=== PATIENT | male | born 1975 | race African-American/Black ===

== ENCOUNTER 2018-05-04 00:22 | Emergency (ER) | payer SELFPAY ==
[2018-05-04 01:01] LABS: Urine Blood NEGATIVE (NEG); Urine Glucose NEGATIVE (NEG); Urine Protein TRACE (NEG); Urine Specific Gravity >1.030 (1.005-1.030)
--- NOTE | 2018-05-04 01:05 | ER ---
Nurse's Notes [facility] Name: Abdirahman Wilkinson Age: 42 yrs Sex: Male : 1975 Arrival Date: 05/04/2018 Time: 00:23 Bed 8 Private MD: Diagnosis: Sexually transmitted disease Presentation: 05/04 00:34 Presenting complaint: Patient states: his sexual partner was dx chlamydia 1 week ago. ak1 pt c/o burning with urination X2 days and white "milky" discharge from penis tonight. Transition of care: patient was not received from another setting of care. Onset of symptoms was May 02, 2018. Risk Assessment: Do you want to hurt yourself or someone else? Patient reports no desire to harm self or others. Initial Sepsis Screen: Does the patient meet any 2 criteria? No. Patient's initial sepsis screen is negative. Does the patient have a suspected source of infection? No. Patient's initial sepsis screen is negative. Care prior to arrival: None. 00:34 Method Of Arrival: Ambulatory ak1 00:34 Acuity: ZAC 4 ak1 Triage Assessment: 00:36 General: Appears in no apparent distress. Behavior is calm, cooperative. ak1 Historical: - Allergies: 00:36 No Known Allergies; ak1 - Home Meds: 00:36 None [Active]; ak1 - PMHx: 00:36 None; ak1 - PSHx: 00:36 None; ak1 - Immunization history:: Adult Immunizations unknown. - Social history:: Smoking status: Patient uses tobacco products, smokes one-half pack cigarettes per day. - Ebola Screening: : No symptoms or risks identified at this time. Screenin:28 Abuse screen: Denies threats or abuse. Denies injuries from another. Nutritional ao screening: No deficits noted. Tuberculosis screening: No symptoms or risk factors identified. Fall Risk None identified. Assessment: 00:34 General: Appears in no apparent distress. comfortable, Behavior is calm, cooperative, ao appropriate for age. Pain: Complains of pain in penile burning when urinating. Neuro: Level of Consciousness is awake, alert, obeys commands, Oriented to person, place, time, situation, Appropriate for age Moves all extremities. Full function Speech is normal, Facial symmetry appears normal, Pupils are PERRLA. Cardiovascular: No deficits noted. Capillary refill < 3 seconds Patient's skin is warm and dry. Respiratory: Airway is patent Respiratory effort is even, unlabored, Respiratory pattern is regular, symmetrical. GI: No signs and/or symptoms were reported involving the gastrointestinal system. Abdomen is non-distended. : Reports Significant other tested positive std. Now patient having burning sensations and white discharge. EENT: No signs and/or symptoms were reported regarding the EENT system. Derm: Skin is intact, Skin temperature is warm. Musculoskeletal: No signs and/or symptoms reported regarding the musculoskeletal system. 01:29 Reassessment: DC instructions given to patient. Patient agree with POC and to follow up ao with PCP. Vital Signs: 00:36 BP 134 / 93; Pulse 78; Resp 18; Temp 98.0(O); Pulse Ox 100% on R/A; Weight 92.99 kg ak1 (R); Height 5 ft. 9 in. (175.26 cm) (R); Pain 6/10; 00:36 Body Mass Index 30.27 (92.99 kg, 175.26 cm) ak1 ED Course: 00:23 Patient arrived in ED. ds1 00:30 Abraham Pritchard MD is Attending Physician. pkcynthia 00:33 Dimitri Cruz, ENRIQUE is Primary Nurse. ao 00:35 Triage completed. ak1 00:36 Arm band placed on Patient placed in an exam room, on a stretcher, Patient notified of ak1 wait time. 01:28 No provider procedures requiring assistance completed. Patient did not have IV access ao during this emergency room visit. 01:29 Patient has correct armband on for positive identification. Pulse ox on. NIBP on. ao Administered Medications: 01:15 Drug: Rocephin (cefTRIAXone) 1 grams Route: IM; Site: affected area; ao 01:31 Follow up: Response: No adverse reaction ao Outcome: 01:04 Discharge ordered by . pkl 01:29 Discharged to home ambulatory. ao 01:29 Condition: stable 01:29 Discharge instructions given to patient, Instructed on discharge instructions, follow up and referral plans. Demonstrated understanding of instructions, follow-up care, medications, Prescriptions given X 1. 01:30 Patient left the ED. ao Signatures: Abraham Pritchard MD MD pkl Sanford, Demi ds1 Mirna Iyer RN RN ak1 Dimitri Cruz RN RN ao
--- NOTE | 2018-05-04 01:05 | EDPHYS ---
Physician Documentation [facility] Name: Abdirahman Wilkinson Age: 42 yrs Sex: Male : 1975 Arrival Date: 05/04/2018 Time: 00:23 Bed 8 Private MD: ED Physician Abraham Pritchard HPI: 05/04 00:57 This 42 yrs old Black Male presents to ER via Ambulatory with complaints of Penile pkl Problem. 00:57 The patient presents with symptoms include yellow penile discharge, Exposed to sexual pkl partner with chlammydia. Onset: The symptoms/episode began/occurred 2 day(s) ago. 01:00 Associated signs and symptoms: Pertinent positives: dysuria. pkl Historical: - Allergies: 00:36 No Known Allergies; ak1 - Home Meds: 00:36 None [Active]; ak1 - PMHx: 00:36 None; ak1 - PSHx: 00:36 None; ak1 - Immunization history:: Adult Immunizations unknown. - Social history:: Smoking status: Patient uses tobacco products, smokes one-half pack cigarettes per day. - Ebola Screening: : No symptoms or risks identified at this time. ROS: 01:00 Eyes: Negative for injury, pain, redness, and discharge, ENT: Negative for injury, pkl pain, and discharge, Neck: Negative for injury, pain, and swelling, Cardiovascular: Negative for chest pain, palpitations, and edema, Respiratory: Negative for shortness of breath, cough, wheezing, and pleuritic chest pain, Abdomen/GI: Negative for abdominal pain, nausea, vomiting, diarrhea, and constipation, Back: Negative for injury and pain. 01:00 : Positive for urinary symptoms, burning with urination, penile discharge. 01:00 MS/extremity: Negative for acute changes. 01:00 Skin: Negative for rash. 01:00 Neuro: Negative for altered mental status. Exam: 01:00 Head/Face: Normocephalic, atraumatic. Eyes: Pupils equal round and reactive to light, pkl extra-ocular motions intact. Lids and lashes normal. Conjunctiva and sclera are non-icteric and not injected. Cornea within normal limits. Periorbital areas with no swelling, redness, or edema. ENT: Nares patent. No nasal discharge, no septal abnormalities noted. Tympanic membranes are normal and external auditory canals are clear. Oropharynx with no redness, swelling, or masses, exudates, or evidence of obstruction, uvula midline. Mucous membranes moist. Neck: Trachea midline, no thyromegaly or masses palpated, and no cervical lymphadenopathy. Supple, full range of motion without nuchal rigidity, or vertebral point tenderness. No Meningismus. Chest/axilla: Normal chest wall appearance and motion. Nontender with no deformity. No lesions are appreciated. Cardiovascular: Regular rate and rhythm with a normal S1 and S2. No gallops, murmurs, or rubs. Normal PMI, no JVD. No pulse deficits. Respiratory: Lungs have equal breath sounds bilaterally, clear to auscultation and percussion. No rales, rhonchi or wheezes noted. No increased work of breathing, no retractions or nasal flaring. Abdomen/GI: Soft, non-tender, with normal bowel sounds. No distension or tympany. No guarding or rebound. No evidence of tenderness throughout. Back: No spinal tenderness. No costovertebral tenderness. Full range of motion. Skin: Warm, dry with normal turgor. Normal color with no rashes, no lesions, and no evidence of cellulitis. MS/ Extremity: Pulses equal, no cyanosis. Neurovascular intact. Full, normal range of motion. Neuro: Awake and alert, GCS 15, oriented to person, place, time, and situation. Cranial nerves II-XII grossly intact. Motor strength 5/5 in all extremities. Sensory grossly intact. Cerebellar exam normal. Normal gait. 01:00 : yellowish urethral gischarge. Vital Signs: 00:36 BP 134 / 93; Pulse 78; Resp 18; Temp 98.0(O); Pulse Ox 100% on R/A; Weight 92.99 kg ak1 (R); Height 5 ft. 9 in. (175.26 cm) (R); Pain 6/10; 00:36 Body Mass Index 30.27 (92.99 kg, 175.26 cm) ak1 MDM: 00:30 Patient medically screened. pkl 01:03 Data reviewed: vital signs, nurses notes. pkl 05/04 00:57 Order name: Urine Dipstick--Ancillary (enter results) cc 05/04 00:57 Order name: Urine Microscopic Only rv 05/04 00:57 Order name: Urine Culture rv 05/04 00:57 Order name: Urine Dipstick-Ancillary; Complete Time: 01:05 EDMS 05/04 00:57 Order name: Urine Dipstick-Ancillary (obtain specimen); Complete Time: 00:57 cc 05/04 01:20 Order name: GC (Anderson/Chl) Probe URINE EDMS Administered Medications: 01:15 Drug: Rocephin (cefTRIAXone) 1 grams Route: IM; Site: affected area; ao 01:31 Follow up: Response: No adverse reaction ao Disposition: 05/04/18 01:04 Discharged to Home. Impression: Sexually transmitted disease. - Condition is Stable. - Prescriptions for Doxycycline Hyclate 100 mg Oral Tablet - take 1 tablet by ORAL route every 12 hours; 20 tablet. - Medication Reconciliation Form, Thank You Letter, Antibiotic Education, Prescription Opioid Use form. - Follow up: Private Physician; When: 2 - 3 days; Reason: Re-evaluation by your physician. - Problem is new. - Symptoms are unchanged. Signatures: [facility] Abraham Pritchard MD MD pkl Yvette Browne Amber RN RN ak1 Dimitri Cruz RN RN ao Corrections: (The following items were deleted from the chart) 01:20 01:00 Miscellaneous Lab Test+[id number].LAB.BRZ ordered. [facility] EDPR 01:30 01:04 05/04/2018 01:04 Discharged to Home. Impression: Sexually transmitted disease. ao Condition is Stable. Forms are Medication Reconciliation Form, Thank You Letter, Antibiotic Education, Prescription Opioid Use. Follow up: Private Physician; When: 2 - 3 days; Reason: Re-evaluation by your physician. Problem is new. Symptoms are unchanged. pkl
[2018-05-04] MEDS ORDERED: CEFTRIAXONE 1000 MG/VIAL ONE (01:15)
[2018-05-04 01:44] LABS: Urine Bacteria <20 /HPF (NONE SEEN); Urine Culture Reflex Order NOT NEEDED; Urine RBC <5 /HPF (NONE SEEN)
[2018-05-06 13:10] LABS: C.trachomatis RNA,TMA Detected (Not Detected)
== END 2018-05-04 01:30 | disposition home or self-care (01) ==
LOC: ER 00:22
DX: A64 Unspecified sexually transmitted disease (principal); F17.210 Nicotine dependence, cigarettes, uncomplicated
CPT/HCPCS: 81003; 81015; 87086; 87088; 87490; 87590; 96372; 99283

== ENCOUNTER 2019-07-10 11:14 | Emergency (ER) | payer SELFPAY ==
--- NOTE | 2019-07-10 12:34 | ER ---
Nurse's Notes [facility] Name: Abdirahman Wilkinson Age: 43 yrs Sex: Male : 1975 Arrival Date: 07/10/2019 Time: 11:16 Bed 9 Private MD: Diagnosis: Acute bronchitis;Acute pharyngitis Presentation: 07/10 11:19 Presenting complaint: Patient states: I have had a really bad cough that started sg yesterday, reports chest congestion, coughing fit made me vomit x1. Transition of care: patient was not received from another setting of care. Onset of symptoms was July 10, 2019. Risk Assessment: Do you want to hurt yourself or someone else? Patient reports no desire to harm self or others. Initial Sepsis Screen: Does the patient meet any 2 criteria? No. Patient's initial sepsis screen is negative. Does the patient have a suspected source of infection? No. Patient's initial sepsis screen is negative. Care prior to arrival: None. 11:19 Method Of Arrival: Ambulatory sg 11:19 Acuity: ZAC 4 sg Triage Assessment: 13:00 General: Appears in no apparent distress. Behavior is calm, cooperative. Respiratory: iw Airway is patent Respiratory effort is even, unlabored. Historical: - Allergies: 11:23 No Known Allergies; sg - Home Meds: 11:23 None [Active]; sg - PMHx: 11:23 None; sg - PSHx: 11:23 None; sg - Immunization history:: Adult Immunizations unknown. - Social history:: Smoking status: Patient/guardian denies using tobacco. - Ebola Screening: : Patient negative for fever greater than or equal to 101.5 degrees Fahrenheit, and additional compatible Ebola Virus Disease symptoms Patient denies exposure to infectious person Patient denies travel to an Ebola-affected area in the 21 days before illness onset No symptoms or risks identified at this time. Screenin:22 Abuse screen: Denies threats or abuse. Denies injuries from another. Nutritional sg screening: No deficits noted. Tuberculosis screening: No symptoms or risk factors identified. Never had TB. Fall Risk None identified. Assessment: 11:24 Pain: Complains of pain in sore throat, body aches, pain with cough in chest Quality of sg pain is described as aching, "sore. Neuro: Level of Consciousness is awake, alert, obeys commands, Oriented to person, place, time, Sql Analyst are equal bilaterally Facial symmetry appears normal. Cardiovascular: Capillary refill is brisk in bilateral fingers Patient's skin is warm and dry. Chest pain is denied. Respiratory: Reports cough that is non-productive, pain with cough Airway is patent Respiratory effort is even, unlabored, Respiratory pattern is regular, symmetrical, Breath sounds are clear. GI: Abdomen is flat, non-distended, Reports vomiting, after coughing. : No signs and/or symptoms were reported regarding the genitourinary system. EENT: Nares are clear bilaterally Oral mucosa is moist. Throat is clear. Derm: Skin is intact, is healthy with good turgor, Skin is dry, Skin is normal, Skin temperature is warm. Musculoskeletal: Circulation, motion, and sensation intact. Range of motion: intact in all extremities, Reports pain in body aches. Vital Signs: 11:20 BP 129 / 92; Pulse 90; Resp 18; Temp 98.6; Pulse Ox 100% on R/A; Weight 90.72 kg; sg Height 5 ft. 9 in. (175.26 cm); 11:20 Body Mass Index 29.53 (90.72 kg, 175.26 cm) ED Course: 11:16 Patient arrived in ED. mr 11:19 Arm band placed on. sg 11:20 Triage completed. 11:23 Freddy Duarte PA is PHCP. [facility] 11:23 Mario Morrow MD is Attending Physician. [facility] 11:30 Patient has correct armband on for positive identification. iw 11:42 Salena Chapman RN is Primary Nurse. iw 13:05 No provider procedures requiring assistance completed. Patient did not have IV access iw during this emergency room visit. Administered Medications: No medications were administered Outcome: 12:33 Discharge ordered by . [facility] 13:05 Discharged to home ambulatory. iw 13:05 Condition: good 13:05 Discharge instructions given to patient, Instructed on discharge instructions, follow up and referral plans. medication usage, Demonstrated understanding of instructions, follow-up care, medications, Prescriptions given X 2. 13:06 Patient left the ED. iw Signatures: Clovis Conner RN RN Freddy Duarte PA PA jmm Rivera, Mary mr Ari, Salena, RN RN iw
--- NOTE | 2019-07-10 12:34 | EDPHYS ---
Physician Documentation [facility] Name: Abdirahman Wilkinson Age: 43 yrs Sex: Male : 1975 Arrival Date: 07/10/2019 Time: 11:16 Bed 9 Private MD: ED Physician Mario Morrow HPI: 07/10 11:40 This 43 yrs old Black Male presents to ER via Ambulatory with complaints of Congestion, jmm Vomiting. 11:40 The patient or guardian reports cough. Onset: The symptoms/episode began/occurred jmm gradually, 3 day(s) ago. Modifying factors: The symptoms are alleviated by nothing. the symptoms are aggravated by nothing. Associated signs and symptoms: Pertinent positives: sore throat, vomiting, Pertinent negatives: fever. This is a 43 year old male with no chronic medical conditions that presents to the ED with complaints of cough, congestion, sore throat beginning 3 days ago. Patient states 1 episode of vomiting after cough. . Historical: - Allergies: 11:23 No Known Allergies; sg - Home Meds: 11:23 None [Active]; sg - PMHx: 11:23 None; sg - PSHx: 11:23 None; sg - Immunization history:: Adult Immunizations unknown. - Social history:: Smoking status: Patient/guardian denies using tobacco. - Ebola Screening: : Patient negative for fever greater than or equal to 101.5 degrees Fahrenheit, and additional compatible Ebola Virus Disease symptoms Patient denies exposure to infectious person Patient denies travel to an Ebola-affected area in the 21 days before illness onset No symptoms or risks identified at this time. ROS: 11:40 Constitutional: Negative for fever, chills, and weight loss, Cardiovascular: Negative jmm for chest pain, palpitations, and edema. 11:40 ENT: Positive for sore throat. 11:40 Respiratory: Positive for cough. 11:40 All other systems are negative. Exam: 11:40 Constitutional: This is a well developed, well nourished patient who is awake, alert, jmm and in no acute distress. Head/Face: atraumatic. Eyes: EOMI, no conjunctival erythema appreciated 11:40 Neck: Trachea midline, Supple Chest/axilla: Normal chest wall appearance and motion. 11:40 Abdomen/GI: Non distended, soft Back: Normal ROM Skin: General appearance color normal MS/ Extremity: Moves all extremities, no obvious deformities appreciated, no edema noted to the lower extremities Neuro: Awake and alert, normal gait Psych: Behavior is normal, Mood is normal, Patient is cooperative and pleasant 11:40 ENT: Posterior pharynx: Uvula: midline, erythema, that is moderate. 11:40 Cardiovascular: Rate: normal, Rhythm: regular, Pulses: no pulse deficits are appreciated. 11:40 Respiratory: the patient does not display signs of respiratory distress, Respirations: normal, Breath sounds: are clear throughout. Vital Signs: 11:20 BP 129 / 92; Pulse 90; Resp 18; Temp 98.6; Pulse Ox 100% on R/A; Weight 90.72 kg; sg Height 5 ft. 9 in. (175.26 cm); 11:20 Body Mass Index 29.53 (90.72 kg, 175.26 cm) sg MDM: 11:35 Patient medically screened. [facility] 12:31 Data reviewed: vital signs, nurses notes. Counseling: I had a detailed discussion with josh the patient and/or guardian regarding: the historical points, exam findings, and any diagnostic results supporting the discharge/admit diagnosis, radiology results, the need for outpatient follow up, to return to the emergency department if symptoms worsen or persist or if there are any questions or concerns that arise at home. ED course: Patient is alert and non toxic in appearance in the ED. Patient advised to follow up with pcp and otherwise given strict return precautions. Patient understood and agrees with the plan of care. . 07/10 11:39 Order name: Flu; Complete Time: 12:10 [facility] 07/10 11:39 Order name: Strep; Complete Time: 12:01 [facility] 07/10 12:03 Order name: Throat Culture EDMS Administered Medications: No medications were administered Disposition: 07/11 08:32 Co-signature as Attending Physician, Mario Morrow MD I agree with the assessment and kdr plan of care. Disposition: 07/10/19 12:33 Discharged to Home. Impression: Acute bronchitis, Acute pharyngitis. - Condition is Stable. - Discharge Instructions: Acute Bronchitis, Adult, Pharyngitis. - Prescriptions for Zithromax Z- Ramiro 250 mg Oral Tablet - take 1 tablet by ORAL route as directed for 5 days Day 1 - take two (2) tablets one time. Day 2, 3, 4 , 5 take one (1) tablet once daily.; 6 tablet. Albuterol Sulfate 90 mcg/actuation - inhale 1-2 puff by INHALATION route every 4-6 hours; 1 Inhaler. - Medication Reconciliation Form, Thank You Letter, Antibiotic Education, Prescription Opioid Use, Work release form form. - Follow up: Private Physician; When: 2 - 3 days; Reason: Recheck today's complaints, Continuance of care, Re-evaluation by your physician. Signatures: Dispatcher [employer] EDClovis Zamora, RN RN sg Mario Mororw MD MD kdr Mickail, Joel, PA PA jmm Williams, Irene, RN RN iw Corrections: (The following items were deleted from the chart) 07/10 13:06 12:33 07/10/2019 12:33 Discharged to Home. Impression: Acute bronchitis; Acute iw pharyngitis. Condition is Stable. Forms are Medication Reconciliation Form, Thank You Letter, Antibiotic Education, Prescription Opioid Use. Follow up: Private Physician; When: 2 - 3 days; Reason: Recheck today's complaints, Continuance of care, Re-evaluation by your physician. noelle
[2019-07-10 13:17] VITALS: BP 129/92; TEMP 98.6; O2SAT 100
== END 2019-07-10 13:06 | disposition home or self-care (01) ==
LOC: ER 11:14
DX: J20.9 Acute bronchitis, unspecified (principal)
CPT/HCPCS: 87070; 87081; 87804; 99282

== ENCOUNTER 2019-10-18 04:05 | Emergency (ER) | payer SELFPAY ==
--- NOTE | 2019-10-18 04:40 | EDPHYS ---
Physician Documentation [facility] Name: Abdirahman Wilkinson Age: 44 yrs Sex: Male : 1975 Arrival Date: 10/18/2019 Time: 04:08 Bed External Waiting Private MD: ED Physician Jose Callahan HPI: 10/17 06:52 This 44 yrs old Black Male presents to ER via Ambulatory with complaints of Cough. tw4 06:52 The patient or guardian reports cough. Onset: The symptoms/episode began/occurred tw4 today. Severity of symptoms: At their worst the symptoms were mild, in the emergency department the symptoms are unchanged. Modifying factors: The symptoms are alleviated by nothing, the symptoms are aggravated by nothing. The patient has not experienced similar symptoms in the past. Historical: - Allergies: 04:20 No Known Allergies; ao - Home Meds: 04:20 None [Active]; ao - PMHx: 04:20 Hypertension; ao - PSHx: 04:20 None; ao - Immunization history:: Adult Immunizations up to date. - Social history:: Smoking status: Patient reports the use of cigarette tobacco products, smokes one pack cigarettes per day. Patient uses alcohol, on a daily basis. Patient/guardian denies using street drugs, IV drugs. ROS: 06:52 Constitutional: Negative for fever, chills, and weight loss, Eyes: Negative for injury, tw4 pain, redness, and discharge, Cardiovascular: Negative for chest pain, palpitations, and edema, Abdomen/GI: Negative for abdominal pain, nausea, vomiting, diarrhea, and constipation, Back: Negative for injury and pain, MS/Extremity: Negative for injury and deformity, Skin: Negative for injury, rash, and discoloration, Neuro: Negative for headache, weakness, numbness, tingling, and seizure. 06:52 Respiratory: Positive for cough. Exam: 06:52 Constitutional: This is a well developed, well nourished patient who is awake, alert, tw4 and in no acute distress. Head/Face: Normocephalic, atraumatic. Chest/axilla: Normal chest wall appearance and motion. Nontender with no deformity. No lesions are appreciated. Cardiovascular: Regular rate and rhythm with a normal S1 and S2. No gallops, murmurs, or rubs. Normal PMI, no JVD. No pulse deficits. Respiratory: Lungs have equal breath sounds bilaterally, clear to auscultation and percussion. No rales, rhonchi or wheezes noted. No increased work of breathing, no retractions or nasal flaring. Abdomen/GI: Soft, non-tender, with normal bowel sounds. No distension or tympany. No guarding or rebound. No evidence of tenderness throughout. Back: No spinal tenderness. No costovertebral tenderness. Full range of motion. MS/ Extremity: Pulses equal, no cyanosis. Neurovascular intact. Full, normal range of motion. Neuro: Awake and alert, GCS 15, oriented to person, place, time, and situation. Cranial nerves II-XII grossly intact. Motor strength 5/5 in all extremities. Sensory grossly intact. Cerebellar exam normal. Normal gait. Vital Signs: 04:16 Pulse 76; Resp 16; Temp 98.4; Pulse Ox 100% ; Weight 83.91 kg; Height 6 ft. 0 in. ao (182.88 cm); Pain 0/10; 04:20 BP 168 / 111; ao 04:16 Body Mass Index 25.09 (83.91 kg, 182.88 cm) ao MDM: 04:14 Patient medically screened. tw4 04:38 Data reviewed: vital signs, nurses notes. Medical screen evaluation completed. EMTALA tw4 emergency medical condition absent. 06:52 Differential Diagnosis: Obstructed Airway Bronchitis Influenza Upper Respiratory tw4 Infection Asthma Exacerbation Viral Syndrome Pneumonia. Data interpreted: Pulse oximetry: Interpretation: normal. Special discussion: I discussed with the patient/guardian in detail that at this point there is no indication for admission to the hospital. It is understood, however, that if the symptoms persist or worsen the patient needs to return immediately for re-evaluation. Administered Medications: No medications were administered Disposition: 10/18/19 04:39 Discharged to Home. Impression: Cough. - Condition is Stable. - Discharge Instructions: Cough, Adult. - Medication Reconciliation Form, Thank You Letter, Antibiotic Education, Prescription Opioid Use form. - Follow up: Private Physician; When: Upon discharge from the Emergency Department; Reason: Recheck today's complaints, Continuance of care, Re-evaluation by your physician. - Problem is an ongoing problem. - Symptoms are unchanged. Signatures: Dimitri Cruz RN Jose Puga MD MD tw4 FieldingKrishna mw2 Corrections: (The following items were deleted from the chart) 04:39 04:39 10/18/2019 04:39 Discharged to Home. Impression: Cough. Condition is Stable. mw2 Forms are Medication Reconciliation Form, Thank You Letter, Antibiotic Education, Prescription Opioid Use. Follow up: Private Physician; When: Upon discharge from the Emergency Department; Reason: Recheck today's complaints, Continuance of care, Re-evaluation by your physician. Problem is an ongoing problem. Symptoms are unchanged. tw4
--- NOTE | 2019-10-18 04:40 | ER ---
Nurse's Notes [facility] Name: Abdirahman Wilkinson Age: 44 yrs Sex: Male : 1975 Arrival Date: 10/18/2019 Time: 04:08 Bed External Waiting Private MD: Diagnosis: Cough Presentation: 10/17 04:16 Chief complaint: Patient states: Had been coughing for days and tonight started having ao chills. Patient denies nausea, vomiting or diarrhea. Coronavirus screen: The patient has NOT traveled to a country currently being monitored by the [facility] within the last 14 days. Proceed with normal triage procedures. The patient has NOT had contact with any known and/or suspected case of coronavirus. Proceed with normal triage procedures. Ebola Screen: Patient negative for fever greater than or equal to 101.5 degrees Fahrenheit, and additional compatible Ebola Virus Disease symptoms Patient denies exposure to infectious person. Patient denies travel to an Ebola-affected area in the 21 days before illness onset. Initial Sepsis Screen: Does the patient meet any 2 criteria? No. Patient's initial sepsis screen is negative. Does the patient have a suspected source of infection? No. Patient's initial sepsis screen is negative. Risk Assessment: Do you want to hurt yourself or someone else? Patient reports no desire to harm self or others. 04:16 Method Of Arrival: Ambulatory ao 04:16 Acuity: ZAC 4 ao 04:23 Onset of symptoms is unknown. ao Triage Assessment: 04:22 General: Behavior is calm, cooperative. ao Historical: - Allergies: 04:20 No Known Allergies; ao - Home Meds: 04:20 None [Active]; ao - PMHx: 04:20 Hypertension; ao - PSHx: 04:20 None; ao - Immunization history:: Adult Immunizations up to date. - Social history:: Smoking status: Patient reports the use of cigarette tobacco products, smokes one pack cigarettes per day. Patient uses alcohol, on a daily basis. Patient/guardian denies using street drugs, IV drugs. Screenin:22 Abuse screen: Denies threats or abuse. Denies injuries from another. Nutritional ao screening: No deficits noted. Tuberculosis screening: No symptoms or risk factors identified. Fall Risk None identified. Assessment: 04:21 General: Appears in no apparent distress. comfortable. Pain: Denies pain. Neuro: Level ao of Consciousness is awake, alert, obeys commands, Oriented to person, place, time, situation, Appropriate for age. Cardiovascular: Capillary refill < 3 seconds Patient's skin is warm and dry. Respiratory: Airway is patent Respiratory effort is even, unlabored, Respiratory pattern is regular, agonal. GI: Abdomen is non-distended. : No signs and/or symptoms were reported regarding the genitourinary system. EENT: No signs and/or symptoms were reported regarding the EENT system. Derm: Skin is intact, Skin is normal, Skin temperature is warm. Musculoskeletal: No signs and/or symptoms reported regarding the musculoskeletal system. 04:22 Reassessment: Per Dr Callahan. Patient is Med screen. ao Vital Signs: 04:16 Pulse 76; Resp 16; Temp 98.4; Pulse Ox 100% ; Weight 83.91 kg; Height 6 ft. 0 in. ao (182.88 cm); Pain 0/10; 04:20 BP 168 / 111; ao 04:16 Body Mass Index 25.09 (83.91 kg, 182.88 cm) ao ED Course: 04:08 Patient arrived in ED. cl3 04:14 Jose Callahan MD is Attending Physician. tw4 04:16 Dimitri Cruz RN is Primary Nurse. ao 04:19 Triage completed. ao 04:20 Arm band placed on right wrist. Patient placed in an exam room, on a stretcher. ao 04:22 No provider procedures requiring assistance completed. Patient did not have IV access ao during this emergency room visit. 04:23 Patient has correct armband on for positive identification. ao Administered Medications: No medications were administered Outcome: 04:23 Medical screen evaluation completed per provider. Patient chooses to be treated. ao 04:23 Condition: stable 04:23 Following a medical screening exam, the patient was provided information regarding alternative care sites and resources available per registration personnel. 04:39 Discharge ordered by . tw4 04:39 Patient left the ED. mw2 Signatures: Dimitri Cruz, RN RN Jose Benjamin MD MD tw4 Krishna Mcdonald mw2 Karissa Collins cl3
[2019-10-18 04:54] VITALS: TEMP 98.4; O2SAT 100
[2019-10-18 04:55] VITALS: BP 168/111
== END 2019-10-18 04:39 | disposition home or self-care (01) ==
LOC: ER 04:05
DX: R05 Cough (principal); F17.210 Nicotine dependence, cigarettes, uncomplicated
CPT/HCPCS: 99281

== ENCOUNTER 2021-02-27 02:09 | Emergency (ER) | payer SELFPAY ==
[2021-02-27] MEDS ORDERED: ONDANSETRON 4 MG (ODT) TAB ONE (03:26)
--- NOTE | 2021-02-27 04:52 | ER ---
Nurse's Notes [facility] Name: Abdirahman Wilkinson Age: 45 yrs Sex: Male : 1975 Arrival Date: 02/27/2021 Time: 02:13 Bed 25 Private MD: Diagnosis: Presentation: 02/27 02:30 Chief complaint: Patient states: woke up this morning with sore throat, body aches, em chills, and nausea, reports mild cough. Coronavirus screen: Client denies travel out of the [place] in the last 14 days. Ebola Screen: Patient negative for fever greater than or equal to 101.5 degrees Fahrenheit, and additional compatible Ebola Virus Disease symptoms Patient denies exposure to infectious person. Patient denies travel to an Ebola-affected area in the 21 days before illness onset. No symptoms or risks identified at this time. Initial Sepsis Screen: Does the patient meet any 2 criteria? No. Patient's initial sepsis screen is negative. Does the patient have a suspected source of infection? No. Patient's initial sepsis screen is negative. Risk Assessment: Do you want to hurt yourself or someone else? Patient reports no desire to harm self or others. Onset of symptoms was February 27, 2021. 02:30 Method Of Arrival: Ambulatory em 02:30 Acuity: ZAC 4 em Historical: - Allergies: 02:32 No Known Allergies; em - PMHx: 02:32 Hypertension; em - PSHx: 02:32 None; em - Immunization history:: Adult Immunizations up to date. - Social history:: Smoking status: Patient reports the use of cigarette tobacco products, smokes one pack cigarettes per day. - Family history:: not pertinent. Screenin:30 Abuse screen: Denies threats or abuse. Nutritional screening: No deficits noted. em Tuberculosis screening: No symptoms or risk factors identified. Fall Risk None identified. Vital Signs: 02:30 BP 153 / 104; Pulse 80; Resp 18; Temp 96.8; Pulse Ox 99% on R/A; Weight 85.73 kg; em Height 5 ft. 9 in. (175.26 cm); Pain 6/10; 02:30 Body Mass Index 27.91 (85.73 kg, 175.26 cm) em ED Course: 02:13 Patient arrived in ED. es 02:30 Patient has correct armband on for positive identification. em 02:32 Triage completed. em 02:32 Alessio Schilling MD is Attending Physician. ma2 02:32 Arm band placed on. em 03:31 Sonja Taylor, RN is Primary Nurse. bs2 04:50 No provider procedures requiring assistance completed. Patient did not have IV access em during this emergency room visit. Administered Medications: 03:07 Drug: Ondansetron 4 mg Route: PO; em 04:19 Follow up: Response: No adverse reaction em Outcome: 04:51 Eloped from waiting room, after seeing physician Time discovered patient gone: February 272020 at 04:51 04:51 Condition: stable 04:51 Patient left the ED. em Signatures: Guillermina Lawrence Edgar, RN RN em Alessio Schilling MD MD nc2 Sonja Taylor, RN RN bs2
--- NOTE | 2021-02-27 04:52 | EDPHYS ---
Physician Documentation [facility] Name: Abdirahman Wilkinson Age: 45 yrs Sex: Male : 1975 Arrival Date: 02/27/2021 Time: 02:13 Bed 25 Private MD: ED Physician Alessio Schilling HPI: 02/27 02:47 This 45 yrs old Black Male presents to ER via Ambulatory with complaints of Nausea, ma2 Body aches, chills. 02:47 The patient presents to the emergency department with nausea. Onset: The ma2 symptoms/episode began/occurred gradually, 2 day(s) ago. Associated signs and symptoms: Pertinent negatives: constipation, dysuria, flatulence, hematuria. Severity of symptoms: At their worst the symptoms were mild in the emergency department the symptoms are unchanged. The patient has not experienced similar symptoms in the past. Historical: - Allergies: 02:32 No Known Allergies; em - PMHx: 02:32 Hypertension; em - PSHx: 02:32 None; em - Immunization history:: Adult Immunizations up to date. - Social history:: Smoking status: Patient reports the use of cigarette tobacco products, smokes one pack cigarettes per day. - Family history:: not pertinent. ROS: 02:47 Constitutional: Negative for fever, chills, and weight loss. ma2 02:47 All other systems are negative. Exam: 02:47 Constitutional: This is a well developed, well nourished patient who is awake, alert, ma2 and in no acute distress. ENT: Nares patent. No nasal discharge, no septal abnormalities noted. Tympanic membranes are normal and external auditory canals are clear. Oropharynx with no redness, swelling, or masses, exudates, or evidence of obstruction, uvula midline. Mucous membranes moist. Neck: Trachea midline, no thyromegaly or masses palpated, and no cervical lymphadenopathy. Supple, full range of motion without nuchal rigidity, or vertebral point tenderness. No Meningismus. Chest/axilla: Normal chest wall appearance and motion. Nontender with no deformity. No lesions are appreciated. Cardiovascular: Regular rate and rhythm with a normal S1 and S2. No gallops, murmurs, or rubs. Normal PMI, no JVD. No pulse deficits. Respiratory: Lungs have equal breath sounds bilaterally, clear to auscultation and percussion. No rales, rhonchi or wheezes noted. No increased work of breathing, no retractions or nasal flaring. Abdomen/GI: Soft, non-tender, with normal bowel sounds. No distension or tympany. No guarding or rebound. No evidence of tenderness throughout. MS/ Extremity: Pulses equal, no cyanosis. Neurovascular intact. Full, normal range of motion. Neuro: Awake and alert, GCS 15, oriented to person, place, time, and situation. Cranial nerves II-XII grossly intact. Motor strength 5/5 in all extremities. Sensory grossly intact. Cerebellar exam normal. Normal gait. Vital Signs: 02:30 BP 153 / 104; Pulse 80; Resp 18; Temp 96.8; Pulse Ox 99% on R/A; Weight 85.73 kg; em Height 5 ft. 9 in. (175.26 cm); Pain 6/10; 02:30 Body Mass Index 27.91 (85.73 kg, 175.26 cm) em MDM: 02:32 Patient medically screened. ma2 02:47 Differential diagnosis: pancreatitis, diverticulitis, viral gastroenteritis, ma2 gastroenteritis. 02/27 02:36 Order name: Strep; Complete Time: 03:26 em 02/27 02:36 Order name: Flu; Complete Time: 04:30 em 02/27 03:27 Order name: Throat Culture EDMS Administered Medications: 03:07 Drug: Ondansetron 4 mg Route: PO; em 04:19 Follow up: Response: No adverse reaction em Disposition Summary: 02/27/21 04:51 Eloped Disposition: after being seen by provider em Reason: unknown em Discharge Instructions: - Discharge Summary Sheet ma2 Prescriptions: - Zofran 4 mg Oral Tablet - take 1 tablet by ORAL route every 12 hours As needed; 20 tablet; Refills: 0, ma2 Product Selection Permitted - Diclofenac Sodium 75 mg Oral Tablet Sustained Release - take 1 tablet by ORAL route 2 times per day; 30 tablet; Refills: 0, Product ma2 Selection Permitted - Zithromax Z-Ramiro 250 mg Oral Tablet - take 1 tablet by ORAL route as directed for 5 days Day 1 - take two (2) tablets ma2 one time. Day 2, 3, 4 , 5 take one (1) tablet once daily.; 6 tablet; Refills: 0, Product Selection Permitted - Medrol (Ramiro) 4 mg Oral Tablets, Dose Pack - take 1 tablet by ORAL route as directed - follow package instructions; 1 ma2 packet; Refills: 0, Product Selection Permitted Signatures: Dispatcher [employer] Charli Jacome, RN RN Alessio Schilling MD MD ma2 Corrections: (The following items were deleted from the chart) 02:59 02:37 CORONAVIRUS+[id number].[id number] ordered. ARNULFO ARREDONDO
[2021-02-28 07:11] VITALS: BP 153/104; TEMP 96.8; O2SAT 99
== END 2021-02-27 04:51 | disposition left against medical advice (07) ==
LOC: ER 02:09
DX: R11.0 Nausea (principal); I10 Essential (primary) hypertension; F17.210 Nicotine dependence, cigarettes, uncomplicated; Z20.822 Contact with and (suspected) exposure to COVID-19
CPT/HCPCS: 87070; 87081; 87804; 99282; U0003